=== PATIENT | male | born 1940 | race Caucasian/White ===

== ENCOUNTER 2021-12-21 07:44 | Day surgery (SDC) | payer MEDICARE, OTHER ==
[~2021-12-21] VITALS: Ht 175.3 cm; Wt 68.2 kg
[2021-12-21 08:00] VITALS: BP 144/73
[2021-12-21] MEDS ORDERED: FLO0.4C PO (08:08)
[2021-12-21] MEDS ORDERED: SIMV-342 PO (08:08)
[2021-12-21] MEDS ORDERED: BACL20TA PO (08:09)
[2021-12-21] MEDS ORDERED: NIFE90TA44 PO (08:10)
[2021-12-21] MEDS ORDERED: MULT-1180 (08:11)
[2021-12-21] MEDS ORDERED: CHOL50002 PO (08:12)
[2021-12-21] MEDS ORDERED: MECO10005 (08:13)
[2021-12-21] MEDS ORDERED: LYCO10CA2 (08:13)
[2021-12-21] MEDS ORDERED: MIDAZolam 1 MG/ML 5ML VIAL ONE (08:14)
[2021-12-21] MEDS ORDERED: fentaNYL/PF 50MCG/1 ML 2ML syringe ONE (08:14)
[2021-12-21] MEDS ORDERED: OMEG1CAP13 PO (08:14)
[2021-12-21] MEDS ORDERED: LIDOcaine Viscous 15ml cup ONE (08:14)
[2021-12-21] MEDS ORDERED: ZINC25CA PO (08:15)
[2021-12-21] MEDS ORDERED: ASPI-611 PO (08:15)
[2021-12-21] MEDS ORDERED: CALC1TAB PO (08:16)
[2021-12-21] MEDS ORDERED: BETA1POW (08:17)
[2021-12-21 10:40] VITALS: BP 157/84
[2021-12-21 10:50] VITALS: BP 145/75
[2021-12-21 11:00] VITALS: BP 155/74
[2021-12-21 11:10] VITALS: BP 118/69
== END 2021-12-21 11:20 | disposition home or self-care (01) ==
LOC: GI LAB 07:44
PROVIDERS: ATTEND Internal Medicine Gastroenterology
DX: K57.30 Diverticulosis of large intestine without perforation or abscess without bleeding (principal); K64.8 Other hemorrhoids; Z86.010 Personal history of colon polyps; K44.9 Diaphragmatic hernia without obstruction or gangrene; K31.7 Polyp of stomach and duodenum; K31.89 Other diseases of stomach and duodenum; Z79.899 Other long term (current) drug therapy; Z98.890 Other specified postprocedural states
CPT/HCPCS: 43239; 45378; G0500; J2250; J3010; J7030; Z7512; 99152; 99153; A4620